=== PATIENT | female | born 1970 | race Caucasian/White ===

== ENCOUNTER 2018-01-09 20:05 | Inpatient (IN) | payer OTHER, MEDICARE ==
[~2018-01-09] VITALS: Ht 170.2 cm; Wt 94.5 kg
[~2018-01-09 20:05] MED LIST: BACTRIM DS TAB1 EACH PO; IBUPROFEN600 M1 PO; ULTRAM50 M1 PO
--- NOTE | 2018-01-09 20:39 | ED GI/GU/ABDOMINAL COMPLAINT ---
History of Present Illness General Chief Complaint: Abdominal Pain/Flank Pain Stated Complaint: BIBA FOR ABD PAIN Source: patient Exam Limitations: no limitations Vital Signs & Intake/Output Vital Signs & Intake/Output Vital Signs Date Time Temp Pulse Resp B/P B/P Pulse O2 O2 Flow FiO2 Mean Ox Delivery Rate 01/12 1147 97.7 66 18 92/60 98 Room Air 01/12 0613 98.0 69 20 124/86 96 01/11 2147 98.1 68 18 118/66 97 ED Intake and Output 01/12 0000 01/11 1200 Intake Total 1600 250 Output Total Balance 1600 250 Intake, IV 250 Intake, Oral 1600 Allergies Coded Allergies: ceftriaxone (From ROCEPHIN) (Severe, "THROAT CLOSING" 01/05/18) penicillin G (Severe, "THROAT CLOSING" 01/05/18) morphine (Intermediate, RASH 01/09/18) tetracycline (Mild, RASHES 01/05/18) aspirin (Intermediate, RASH 01/09/18) codeine (Intermediate, RASH 01/09/18) hydrocodone (From VICODIN) (Intermediate, RASH 01/09/18) Uncoded Allergies: ALL ANTIBIOTIC ENDING WITH "MYCIN" (Mild, RASHES 01/05/18) Reconcile Medications Emtricitabine/Tenofov Alafenam (Descovy 200-25 MG Tablet) 200 MG-25 MG TABLET 1 TAB PO DAILY HIV Ibuprofen 600 MG TABLET 1 TAB PO Q6P PRN pain with food Loperamide HCl (Loperamide) 2 MG TABLET 1 TAB PO Q6P DIARRHEA (Reported) Omeprazole 40 MG CAPSULE.DR 1 CAP PO BID GERD Raltegravir Potassium (Isentress) 400 MG TABLET 3 TAB PO DAILY HIV Sucralfate (Carafate) 1 GRAM TABLET 1 TAB PO 4 TIMES/DAY GI upset Sulfamethoxazole/Trimethoprim (Bactrim Ds Tablet) 800 MG-160 MG TABLET 1 TAB PO BID cellulitis Tramadol HCl (Ultram) 50 MG TABLET 1 TAB PO Q6P PRN severe pain Venlafaxine HCl (Venlafaxine HCl ER) 150 MG TAB.ER.24 1 TAB PO QPM DEPRESSION (Reported) Venlafaxine HCl 75 MG TABLET 1 TAB PO QPM DEPRESSION (Reported) Triage Note: BIBA FROME HOME WITH CHIEF COMPLAINT OF UMBILICAL PAIN X2 HOURS WITH NAUSEA AND DRY HEAVING. PATIENT STATES SHE BEGAN BACTRIM FOR BLE CELLULITIS 2 DAYS AGO AND SHE ALSO STARTED ANTI-VIRALS. PATIENT STATES SHE FEELS WEAK BUT DENIES FEVER OR CHILLS. BLE RED/SWOLLEN/WARM, +3 EDEMA NOTED. PATIENT DENIES CP OR DIFFICULTY BREATHING. Triage Nurses Notes Reviewed? yes ? N Is pt currently ? No HPI: Patient presents for evaluation of an abrupt onset of periumbilical abdominal pain that began about 3 hours ago. Patient states that is a sharp stabbing severe pain that has been constant since onset. Nothing seems to make it better or worse. At onset patient felt nauseous and did experience "dry heaving". She also felt clammy but denies associated fever or cold symptoms diarrhea dysuria rashes recent travel or suspicious meals. The pain began while she was sitting in the park. She denies any prior episodes of this nature. She is currently being treated for a right lower extremity cellulitis on Bactrim. This was diagnosed 3 days ago. 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 Past History Travel History Traveled to [place] past 21 day No Medical History Any Pertinent Medical History? 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 No Review of Systems Review of Systems Constitutional: Reports: no symptoms. EENTM: Reports: no symptoms. Respiratory: Reports: no symptoms. Cardiovascular: Reports: no symptoms. GI: Reports: see HPI. Genitourinary: Reports: no symptoms. Musculoskeletal: Reports: no symptoms. Skin: Reports: see HPI. Neurological/Psychological: Reports: no symptoms. Hematologic/Endocrine: Reports: no symptoms. Immunologic/Allergic: Reports: no symptoms. All Other Systems: Reviewed and Negative Physical Exam Physical Exam Gastrointestinal: SEE BELOW Comments: Gen.: Well-nourished, well-developed, no acute respiratory distress. Head: Normocephalic, atraumatic. Eyes: Normal inspection bilaterally Ears: Normal inspection bilaterally Nose: Normal inspection Throat/mouth : Moist mucosa Neck: Supple, full range of motion, no goiter Heart: Regular rate and rhythm, no murmurs rubs or gallops Lungs: Clear to auscultation bilaterally with normal air entry Chest: Nontender Back: Normal range of motion Abdomen: Soft, periumbilical tenderness without rebound or guarding, nondistended, normal bowel sounds Extremities: Normal range of motion grossly, equal radial pulses, no cyanosis, mild bilateral lower extremity edema with patchy erythema and warmth bilaterally. The anterior right leg has a chronic leg wound without apparent drainage. Neurologic: Cranial nerves grossly intact, speech is clear Skin: warm and dry Psychiatric: Calm, cooperative, no apparent delusions or hallucinations Core Measures ACS in differential dx? No Sepsis Present: No Sepsis Focused Exam Completed? No Progress Differential Diagnosis: CELLULITIS, STASIS DERMATITIS, NECROTIZING FASCIITIS, TOXIC SHOCK SYNDROME, Vazquez-Elyssa SYNDROME Plan of Care: Orders Procedure Date/time Status CBC WITHOUT DIFFERENTIAL 01/13 600 Active Clear Liquid Diet 01/12 L Active Nothing by Mouth 01/12 B Complete PATHOLOGY SPECIMEN 01/12 1331 Active T-HELPER/SUPPRESSOR Ref$ 01/12 0600 Active CBC WITHOUT DIFFERENTIAL 01/12 600 Complete BASIC ELECTROLYTES PLUS BUN&CR 01/12 06 Complete CULTURE,URINE 01/11 1428 Active Lab Add-on Test 01/11 UNK Active Current Medications Sig/Jennifer Start time Last Medication Dose Stop Time Status Admin Omeprazole 40 MG 1/2H B/BREAKF/DINNER 01/12 1630 AC (Prilosec) Sucralfate 1,000 MG 4 TIMES/DAY 01/11 1700 AC 01/12 (Carafate) 0803 Omeprazole 40 MG 1/2H B/BREAKF/DINNER 01/11 1630 CAN (Prilosec) Raltegravir 1,200 MG DAILY 01/11 1445 AC 01/12 0803 Ondansetron HCl 4 MG Q6P PRN 01/11 1115 AC 01/12 (Zofran) 0715 Venlafaxine HCl 225 MG QPM 01/10 2100 AC 01/11 (Effexor Xr) 2025 Acetaminophen 650 MG Q6P PRN 01/10 1645 AC 01/11 (Tylenol) 1631 Enoxaparin Sodium 40 MG DAILY 01/10 0900 AC 07/05 (Lovenox) 1036 Laboratory Tests 01/12/18 0642: Total Abs Lymphocytes Pending 01/12/18 0642: Anion Gap 7, Estimated GFR > 60, BUN/Creatinine Ratio 6.7 L, CBC w Diff NO MAN DIFF REQ, RBC 3.65 L, MCV 93.5, MCH 31.0, MCHC 33.2, RDW 14.9 H, MPV 8.8, Gran % 58.7, Lymphocytes % 27.2, Monocytes % 6.9, Eosinophils % 6.7 H, Basophils % 0.5, Absolute Granulocytes 2.5, Absolute Lymphocytes 1.2, Absolute Monocytes 0.3 , Absolute Eosinophils 0.3, Absolute Basophils 0, Lymphocyte Subset Cmmnt Pending, Absolute CD3 Count Pending, % CD3 Mature T-Lymphs Pending, % CD4 [place] Pending, Absolute CD4 Count Pending, T-Help/Suppress Ratio Pending, % CD8 Suppressor Pending, Absolute CD8 Count Pending, HIV 1&2 RNA (PCR) Pending Microbiology 01/12 1920 URINE ROUT: Urine Culture - RES Diagnostic Imaging: Discussed w/RAD: CT Scan. Radiology Impression: PATIENT: JADIEL JOYA PRESENT AGE: 47 PATIENT ACCOUNT NO: [id number] : 68 LOCATION: [facility] ORDERING PHYSICIAN: Eric Robles MD SERVICE DATE: 01/09/18-2038 EXAM TYPE : CAT - CT ABD & PELVIS W IV CONTRAST EXAMINATION: CT ABDOMEN AND PELVIS WITH CONTRAST CLINICAL INFORMATION: Periumbilical abdominal pain, tenderness COMPARISON: None TECHNIQUE: Multidetector volumetric imaging was performed of the abdomen and pelvis following IV administration of 95 mL of Optiray 320 intravenous contrast. Sagittal and coronal reformatted images were obtained on the technologist's workstation. DLP: 567 mGy-cm FINDINGS: LUNG BASES: The visualized lung bases are unremarkable. LIVER, GALLBLADDER, AND BILIARY TREE: The liver is normal in size, shape, and attenuation. No focal hepatic lesion or biliary ductal dilatation is present. The gallbladder is unremarkable with no evidence of radiopaque gallstones, gallbladder wall thickening, or obvious pericholecystic inflammatory changes. PANCREAS: Unremarkable. SPLEEN: Unremarkable. ADRENAL GLANDS: There is a 1.8 cm lipid rich adenoma at the inferolateral aspect of the left lateral limb. The right adrenal gland appears normal. KIDNEYS AND URETERS: The kidneys are normal in size, shape, and attenuation. No hydronephrosis, hydroureter, or calculi seen. No perinephric stranding. BLADDER: Unremarkable. GASTROINTESTINAL TRACT: The small and large bowel are unremarkable. The appendix is unremarkable. ABDOMINAL WALL: No significant hernia is appreciated. LYMPH NODES: Normal. VASCULAR: Unremarkable. PELVIC VISCERA: Unremarkable. OSSEOUS STRUCTURES: Severe facet arthrosis at L4- L5 with slight anterolisthesis. Right sacroiliitis with sclerosis, appearing chronic. IMPRESSION: No focal inflammatory process or obstruction. Normal appendix. There is a 1.8 cm left adrenal adenoma. DICTATED BY: Santiago Bolaños MD DATE/TIME DICTATED:01/09/182218 OCCUPATIONAL HEALTH PHYSIOTHERAPIST:ELLEN DATE/TIME TRANSCRIBED:01/09/182218 CONFIDENTIAL, DO NOT COPY WITHOUT APPROPRIATE AUTHORIZATION. <Electronically signed in Other Vendor System> SIGNED BY: Santiago Bolaños MD 01/09/182230 Initial ED EKG: none Comments: Patient states that her "MYCIN" allergy was to erythromycin. Departure Departure Disposition: STILL A PATIENT Condition: Stable Clinical Impression Primary Impression: Cellulitis of right lower extremity Secondary Impressions: Nonspecific abdominal pain Referrals: Patient Has No Primary Care Dr (PCP/Family) Departure Forms: Customer Survey General Discharge Information Prescriptions: Current Visit Scripts Emtricitabine/Tenofov Alafenam (Descovy 200-25 MG Tablet) 1 TAB PO DAILY #30 TAB Raltegravir Potassium (Isentress) 3 TAB PO DAILY #90 TAB Omeprazole 1 CAP PO BID #60 CAP Sucralfate (Carafate) 1 TAB PO 4 TIMES/DAY #120 TAB Admission Note Spoke With: Pierre Narvaez MD Documentation of Exam: Documentation of any treatments & extenuating circumstances including Concerns Regarding Discharge (functional status, medication knowledge or non-compliance, living conditions, etc.) that warrant an admission rather than observation: Patient presents with bilateral lower extremity cellulitis that has not responded to outpatient management with Bactrim. This patient now requires hospitalization given her failure of outpatient treatment for more aggressive management with IV antibiotics. Vital signs should be monitored for fever. Patient's lower extremities should be evaluated serially to assess for improvement. If patient does not respond to initial management over the next 48 hours then infectious disease consultation should be considered. This patient has had multiple episodes of cellulitis in the past and osteomyelitis should also be considered. These multiple episodes also raised the possibility of a multidrug resistant infection that could complicate and prolong her recovery and treatment. I feel she will require a multiple day hospitalization.
[2018-01-09 21:18] LABS: ABSOLUTE BASOPHIL COUNT 0 /CUMM (0.0-0.2); ABSOLUTE EOSINOPHIL COUNT 0.3 /CUMM (0.0-0.7); ABSOLUTE GRANULOCYTE CT 5.3 /CUMM (1.4-6.5); ABSOLUTE LYMPH COUNT 1.5 /CUMM (1.2-3.4); ABSOLUTE MONOCYTE COUNT 0.6 /CUMM (0.10-0.60); BASOPHIL % 0.4 % (0.0-2.0); EOSINOPHIL % 3.8 % (0-5); MEAN CORPUSCULAR HGB 31.3 PG (27.0-31.0); MEAN CORPUSCULAR HGB CONC 33.8 G/DL (33.0-37.0); MEAN CORPUSCULAR VOLUME 92.5 FL (81.0-99.0); MEAN PLATELET VOLUME 8.7 FL (7.4-10.4); PLATELET COUNT 241 /CUMM (130-400); RBC DISTRIBUTION WIDTH 15.3 % (11.5-14.5); RED BLOOD CELL CT 3.89 /CUMM (4.20-5.40); WHITE BLOOD CELL COUNT 7.6 /CUMM (4.8-10.8)
--- NOTE | 2018-01-09 22:31 | CT SCAN REPORT ---
EXAMINATION: CT ABDOMEN AND PELVIS WITH CONTRAST CLINICAL INFORMATION: Periumbilical abdominal pain, tenderness COMPARISON: None TECHNIQUE: Multidetector volumetric imaging was performed of the abdomen and pelvis following IV administration of 95 mL of Optiray 320 intravenous contrast. Sagittal and coronal reformatted images were obtained on the technologist's workstation. DLP: 567 mGy-cm FINDINGS: LUNG BASES: The visualized lung bases are unremarkable. LIVER, GALLBLADDER, AND BILIARY TREE: The liver is normal in size, shape, and attenuation. No focal hepatic lesion or biliary ductal dilatation is present. The gallbladder is unremarkable with no evidence of radiopaque gallstones, gallbladder wall thickening, or obvious pericholecystic inflammatory changes. PANCREAS: Unremarkable. SPLEEN: Unremarkable. ADRENAL GLANDS: There is a 1.8 cm lipid rich adenoma at the inferolateral aspect of the left lateral limb. The right adrenal gland appears normal. KIDNEYS AND URETERS: The kidneys are normal in size, shape, and attenuation. No hydronephrosis, hydroureter, or calculi seen. No perinephric stranding. BLADDER: Unremarkable. GASTROINTESTINAL TRACT: The small and large bowel are unremarkable. The appendix is unremarkable. ABDOMINAL WALL: No significant hernia is appreciated. LYMPH NODES: Normal. VASCULAR: Unremarkable. PELVIC VISCERA: Unremarkable. OSSEOUS STRUCTURES: Severe facet arthrosis at L4-L5 with slight anterolisthesis. Right sacroiliitis with sclerosis, appearing chronic. IMPRESSION: No focal inflammatory process or obstruction. Normal appendix. There is a 1.8 cm left adrenal adenoma.
--- NOTE | 2018-01-10 02:05 | History & Physical ---
Raphael Mccormack 01/10/18 0203: General Information and HPI MD Statement: I have seen and personally examined JADIEL JOYA and documented this H&P. The patient is a 47 year old F who presented with a patient stated chief complaint of [bilateral lower extremity cellulitis]. Source of Information: patient Exam Limitations: no limitations History of Present Illness: Patient is a 47 yo lady with a PMH significant for AIDS (dx 2006), Mitochondrial Disorder, and Depression, who presents with bilateral lower extremity cellulitis and abdominal pain. She states that the pain is orginating around her umbilical area and describes it as 8/10 in intensity and fairly acute onset starting earlier today (January 09). The pain does not radiate anywhere and although nothing improves her symptoms, movement seems to worsen her symptoms. Her pain is associated with fairly significant nausea and dry heaving. Although she takes loperimide for chronic diarrhea associated with her HAART regimen, she denies any change in her bowel habits since onset of these symtpoms. Futhermore, she complains of bilateral lower extremity erythema, and swelling with purplish sores on the right leg. She states that the sores are old, but they started draining about 5 days ago at the same time that the erythema started. The drainage was originally clear and then became whitish like pus. She was put on Bactrim for the last 5 days, but agrees that it has not improved her situation. She has been hospitalized 9 times in the past 3 months for this bilateral swelling. She denies fever, chills, dizziness, vomitting, burning on urination, or any parasthesias. 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 EENTM: Reports: see HPI. Cardiovascular: Reports: see HPI. Respiratory: Reports: see HPI. GI: Reports: see HPI. Genitourinary: Reports: see HPI. Musculoskeletal: Reports: see HPI. Skin: Reports: see HPI. Neurological/Psychological: Reports: see HPI. Hematologic/Endocrine: Reports: see HPI. Immunologic/Allergic: Reports: see HPI. All Other Systems: Reviewed and Negative Exam & Diagnostic Data Last 24 Hrs of Vital Signs/I&O Vital Signs Date Time Temp Pulse Resp B/P B/P Pulse O2 O2 Flow FiO2 Mean Ox Delivery Rate 01/11 1404 98.2 78 16 102/70 96 Room Air 01/11 0706 98.0 85 18 124/76 98 07/04 2245 98.6 81 18 110/80 97 Room Air Intake & Output 01/11 1600 07/ 0800 07/ 0000 Intake Total 800 250 480 Output Total Balance 800 250 480 Intake, IV 250 Intake, Oral 800 480 Physical Exam General Appearance Alert, Oriented X3, Cooperative, Mild Distress Skin Temp/Moisture Exam: Warm/Dry Sepsis Skin Exam (color): Normal for Ethnicity HEENT Atraumatic, PERRLA, EOMI Neck Supple, No JVD Cardiovascular Normal S1, Normal S2 Lungs Clear to Auscultation Abdomen Normal Bowel Sounds Neurological Normal Speech, Strength at 5/5 X4 Ext Extremities erythema and edema b/l lower ext Vascular Normal Pulses Assessment/Plan Assessment: Vitals on admission were temperature 96.0, heart rate 96, respiratory rate 20, BP 165/35, and oxygen saturation 96% on room air. She had a WBC count of 7.6, H&H 12.2/36.0, platelet count 241, sodium 135, K 5.0 , BUN/creatinine 12/0.7, lactic acid 1.[address] abdomen and pelvis was negative for any acute abdominal pathology or obstruction. Problem list #Abdominal pain, unclear etiology - Start on clear liquid diet, advance as tolerated #Bilateral lower extremity cellulitis, failed outpatient treatment - already given 1 dose vancomycin and ciprofloxacin in the ER given history of recurrent cellulitis (pt hx of anaphylaxis to penicillins) - F/U blood cx #History of AIDS - Burke antiviral reigmen (HAART) #History of depression - Continue venlafaxine ADMIT to general medicine floor DVT prophylaxis; subcutaneous Lovenox As Ranked By This Provider Problem List: 1. Nonspecific abdominal pain 2. Cellulitis of right leg Core Measures/Misc (03/26) Acute Coronary Syndrome ACS Diagnosis: No Congestive Heart Failure Congestive Heart Failure Diagnosis No Cerebrovascular Accident CVA/TIA Diagnosis: No VTE (View Protocol) VTE Risk Factors Age>40 No Mechanical VTE Prophylaxis d/t N/A MechProphylax Ordered No VTE Pharm Prophylaxis d/t NA PharmProphylax ordered Sepsis (View protocol) Sepsis Present: No If YES complete Sepsis Event Note If YES complete Sepsis Event Note Pierre Narvaez MD 01/10/18 0235: Core Measures/Misc (03/26) Sepsis (View protocol) If YES complete Sepsis Event Note If YES complete Sepsis Event Note Attending MD Review Statement Attending Statement Attending MD Statement: examined this patient, discuss w/resident/PA/WORD PROCESSOR TECHNICIAN, agreed w/resident/PA/WORD PROCESSOR TECHNICIAN, reviewed EMR data (avail) Attending Assessment/Plan: 47F PMH HIV, mitochondrial disorder that can lead to lactic acidosis (per her), chronic non-healing ulcer on right leg presents with RLE cellulitis present for a week, started on Bactrim on 01/05 with worsening of pain and erythema of RLE. Afebrile, normal vitals, normal WBC. Complains of mild diffuse abdominal pain, exam benign, CT abdomen normal, labs unremarkable. Has allergy to penicillin, cephalosporins, macrolides. Started on Vanco and Cipro, will continue, cultures , leg elevation, confirm records. Pedro RIBERA,Tati 01/10/18 1545: General Information and HPI Allergies/Medications Allergies: Coded Allergies: ceftriaxone (From ROCEPHIN) (Severe, "THROAT CLOSING" 01/05/18) penicillin G (Severe, "THROAT CLOSING" 01/05/18) morphine (Intermediate, RASH 01/09/18) tetracycline (Mild, RASHES 01/05/18) aspirin (Intermediate, RASH 01/09/18) codeine (Intermediate, RASH 01/09/18) hydrocodone (From VICODIN) (Intermediate, RASH 01/09/18) Uncoded Allergies: ALL ANTIBIOTIC ENDING WITH "MYCIN" (Mild, RASHES 01/05/18) Home Med list Ibuprofen 600 MG TABLET 1 TAB PO Q6P PRN pain with food Loperamide HCl (Loperamide) 2 MG TABLET 1 TAB PO Q6P DIARRHEA (Reported) Sulfamethoxazole/Trimethoprim (Bactrim Ds Tablet) 800 MG-160 MG TABLET 1 TAB PO BID cellulitis Tramadol HCl (Ultram) 50 MG TABLET 1 TAB PO Q6P PRN severe pain Venlafaxine HCl (Venlafaxine HCl ER) 150 MG TAB.ER.24 1 TAB PO QPM DEPRESSION (Reported) Venlafaxine HCl 75 MG TABLET 1 TAB PO QPM DEPRESSION (Reported) Core Measures/Misc (03/26) Sepsis (View protocol) If YES complete Sepsis Event Note If YES complete Sepsis Event Note Resident Review Statement Resident Statement: examined this patient, discussed with internal audit manager, agreed with internal audit manager Other Findings: Ms. Joya is a 47-year-old lady with past medical history significant for ?? Mitochondrial disorder, depression and AIDS who presents with bilateral lower extremity edema and abdominal pain starting around 3 PM this afternoon. According to the patient, she was in her usual state of health when around 3 PM she started having pain around her bellybutton. Pain was 8/10 in intensity, without any radiation or aggravating or relieving factors. She also reports nausea with dry heaving and denies any vomiting. Also denies fever or chills. She usually takes loperamide for diarrhea caused by her antiviral medications but currently denies any diarrhea. She looks complains of bilateral lower extremity erythema, right greater than left, that started around 5 days ago. She also noticed pus/discharge from one of several lesions on her right denton which has improved now. She was started on Bactrim but denies any improvement in the erythema and has noticed spreading of the erythema on her right side. She has had multiple hospitalizations in the past 3-4 months for similar complaint. Vitals on admission were temperature 96.0, heart rate 96, respiratory rate 20, BP 165/35, and oxygen saturation 96% on room air. She had a WBC count of 7.6, H&H 12.2/36.0, platelet count 241, sodium 135, K 5.0 , BUN/creatinine 12/0.7, lactic acid 1.[address] abdomen and pelvis was negative for any acute abdominal pathology or obstruction. Problem list, 1. Abdominal pain, unclear etiology 2. Bilateral lower extremity cellulitis, failed outpatient treatment 3. History of AIDS 4. History of depression - Admit the patient to general medicine floor - Patient was given 1 dose of vancomycin(to cover MRSA) and ciprofloxacin(gram- negative coverage) in the ER given history of recurrent cellulitis which can result in drug persistent and also history of AIDS. Also has a history of anaphylaxis to penicillins and Rocephin. - Follow-up blood cultures - Continue antiviral medications. - Continue venlafaxine. - Start on clear liquid diet given nausea and abdominal pain, advance as tolerated. DVT prophylaxis; subcutaneous Lovenox Patient is full code
[2018-01-10 02:25] VITALS: BP 130/82
--- NOTE | 2018-01-10 02:35 | Admission Certification ---
Admission Certification Certification Statement - As attending physician, I certify that at the time of - admission, based on clinical presentation, severity of - symptoms, need for further diagnostic testing and - therapeutic interventions, and risk of adverse outcomes - without in-hospital treatment, in my clinical assessment, - this patient requires an acute hospital stay for a minimum - of two nights or longer. I have also considered psychsocial - factors such as support system, advanced age, financial - issues, cognitive issues, and failed out-patient treatments, - past re-admission history, safety of patient, and lack of - compliance as applicable. Specific rationale supporting this admission is: Cellulitis faiing outpatient treatment
[2018-01-10] MEDS ORDERED: VENLAFAXINE HC150 M1 PO ×2 (03:00→03:01)
[2018-01-10] MEDS ORDERED: VENLAFAXINE HCL75 MG PO (03:02)
[2018-01-10] MEDS ORDERED: LOPERAMIDE2 M1 PO (03:02)
[2018-01-10 06:34] VITALS: BP 118/70
[2018-01-10 07:42] LABS: ABSOLUTE BASOPHIL COUNT 0 /CUMM (0.0-0.2); ABSOLUTE EOSINOPHIL COUNT 0.2 /CUMM (0.0-0.7); ABSOLUTE GRANULOCYTE CT 3.8 /CUMM (1.4-6.5); ABSOLUTE LYMPH COUNT 1.4 /CUMM (1.2-3.4); ABSOLUTE MONOCYTE COUNT 0.4 /CUMM (0.10-0.60); BASOPHIL % 0.4 % (0.0-2.0); EOSINOPHIL % 3.2 % (0-5); GRANULOCYTE % 64.9 % (42.2-75.2); MEAN CORPUSCULAR HGB 31.4 PG (27.0-31.0); MEAN CORPUSCULAR HGB CONC 33.5 G/DL (33.0-37.0); MEAN CORPUSCULAR VOLUME 93.8 FL (81.0-99.0); MEAN PLATELET VOLUME 8.7 FL (7.4-10.4); PLATELET COUNT 185 /CUMM (130-400); RED BLOOD CELL CT 3.52 /CUMM (4.20-5.40); WHITE BLOOD CELL COUNT 5.8 /CUMM (4.8-10.8)
--- NOTE | 2018-01-10 08:56 | PN- Housestaff ---
See Addendum Subjective Follow-up For: Abdominal pain, unclear etiology. Complaints: pain scale (0-10) Subjective: Patient examined at bedside. No acute events overnight. Patient complaining of stomach pain 6 out of 10, behind her bellybutton, states it is constant, non- radiating,along with nausea and dry heaves. Patient states she had a nonbloody bowel movement yesterday, was normal for her. Patient denies fever, night sweats, chills, blood in stool or melena, coffee grounds, increased urinary frequency, urgency, pain upon urination, Review of Systems Constitutional: Reports: no symptoms. Objective Last 24 Hrs of Vital Signs/I&O Vital Signs Date Time Temp Pulse Resp B/P B/P Pulse O2 O2 Flow FiO2 Mean Ox Delivery Rate 01/10 1340 97.6 97 20 102/54 98 Room Air 01/10 0634 98.2 72 18 118/70 97 Room Air 01/10 0230 Room Air 01/10 0225 98.4 78 18 130/82 99 Room Air 01/10 0142 98.2 84 18 122/69 97 Room Air 01/09 2318 98.6 82 16 122/58 96 Room Air 01/09 2007 98.0 96 20 135/65 96 Room Air Intake & Output 01/10 1600 04 0800 01/10 0000 Intake Total 490 Output Total Balance 490 Intake, IV 10 Intake, Oral 480 Number 0 Bowel Movements Patient 208 lb 180 lb Weight Weight Bed scale Reported by Patient Measurement Method Physical Exam General Appearance: Alert, Oriented X3, Cooperative Skin Temp/Moisture Exam: Warm/Dry HEENT: Atraumatic, PERRLA Neck: Supple, No LAD Cardiovascular: Regular Rate, Normal S1, Normal S2 Lungs: Clear to Auscultation, Normal Air Movement Abdomen: Normal Bowel Sounds, Soft, Tender to deep palpation francisco-umbilically, No Guarding or Rigidity Neurological: Normal Speech, Sensation Intact Extremities: No Edema, Normal Pulses, Two lesions on right lower extremity, 1st one measure 2.5 inches, negative for erythema, tenderness and discharge. 2nd lesions is adjacent, about 1 in. No erythema, tenderness or discharge present. ( Two lesions on right lower ext) Current Medications: Current Medications Sig/Jennifer Start time Last Medication Dose Route Stop Time Status Admin Acetaminophen 650 MG Q6P PRN 01/10 0300 DC PO Ciprofloxacin 500 MG BID 01/10 0900 AC 01/10 PO 01/14 0859 0833 Ciprofloxacin 0 .STK-MED ONE 01/09 2307 DC PO Ciprofloxacin 500 MG ONCE ONE 01/09 224 DC 01/09 PO 01/09 2246 2319 Enoxaparin Sodium 40 MG DAILY 01/10 0900 AC 01/10 SC 0834 Hyoscyamine 0 .STK-MED ONE 01/09 2106 DC .ROUTE Hyoscyamine 0.25 MG ONCE ONE 01/09 2045 DC 01/09 SL 01/09 2046 211 Non-Formulary 0 SEE ADMIN CRITERIA 01/10 315 UNV Medication ANY Non-Formulary 0 SEE ADMIN CRITERIA 01/10 315 UNV Medication ANY Ondansetron HCl 4 MG ONCE ONE 01/10 1400 DC 01/10 PO 01/10 1401 1426 Ondansetron HCl 0 .STK-MED ONE 01/09 2105 DC .ROUTE Ondansetron HCl 4 MG ONCE ONE 01/09 2045 DC 01/09 IV 01/09 2046 211 Sodium Chloride 1,000 ML BOLUS ONE 01/09 2045 DC 01/09 IV 01/09 2144 2112 Vancomycin HCl 1,000 MG 2330 01/10 2330 AC Sodium Chloride 250 ML IV Vancomycin HCl 0 .STK-MED ONE 01/09 2308 DC .ROUTE Vancomycin HCl 1,000 MG ONCE ONE 01/09 224 DC 01/09 Sodium Chloride 250 ML IV 01/09 2344 2319 Venlafaxine HCl 75 MG QPM 01/10 2100 CAN PO Venlafaxine HCl 225 MG QPM 01/10 2100 AC PO Last 24 Hrs of Lab/Daniel Results Last 24 Hrs of Labs/Mics: Laboratory Tests 01/10/18 0700: Urine Color STRAW, Urine Clarity CLEAR, Urine pH 6.0, Ur Specific [place] 1.010, Urine Protein NEG, Urine Ketones NEG, Urine Nitrite POS H, Urine Bilirubin NEG, Urine Urobilinogen 0.2, Ur Leukocyte Esterase TRACE H, Ur Microscopic SEDIMENT EXAMINED, Urine WBC 5-10 H, Ur Epithelial Cells FEW, Urine Bacteria MANY H, Urine Mucus FEW, Urine Hemoglobin NEG, Urine Glucose NEG 01/10/18 0647: Anion Gap 6, Estimated GFR > 60, BUN/Creatinine Ratio 13.3, CBC w Diff NO MAN DIFF REQ, RBC 3.52 L, MCV 93.8, MCH 31.4 H, MCHC 33.5, RDW 15.0 H, MPV 8.7, Gran % 64.9, Lymphocytes % 23.7, Monocytes % 7.8, Eosinophils % 3.2, Basophils % 0.4, Absolute Granulocytes 3.8, Absolute Lymphocytes 1.4, Absolute Monocytes 0.4 , Absolute Eosinophils 0.2, Absolute Basophils 0 01/09/182338: Lactic Acid Cancelled 01/09/182057: Anion Gap 11, Estimated GFR > 60, BUN/Creatinine Ratio 17.1, Glucose 81, Lactic Acid 1.4, Calcium 8.6, Total Bilirubin 0.4, AST 28, ALT 23, Alkaline Phosphatase 65, Total Protein 6.0 L, Albumin 3.2 L, Globulin 2.8, Albumin/Globulin Ratio 1.1, Lipase 49, Total Beta HCG NEGATIVE, CBC w Diff NO MAN DIFF REQ, RBC 3.89 L , MCV 92.5, MCH 31.3 H, MCHC 33.8, RDW 15.3 H, MPV 8.7, Gran % 69.0, Lymphocytes % 19.0 L, Monocytes % 7.8, Eosinophils % 3.8, Basophils % 0.4, Absolute Granulocytes 5.3, Absolute Lymphocytes 1.5, Absolute Monocytes 0.6, Absolute Eosinophils 0.3, Absolute Basophils 0 01/09/182038: Urine Color Cancelled, Urine Clarity Cancelled, Urine pH Cancelled, Ur Specific [place] Cancelled, Urine Protein Cancelled, Urine Ketones Cancelled, Urine Nitrite Cancelled, Urine Bilirubin Cancelled, Urine Urobilinogen Cancelled, Ur Leukocyte Esterase Cancelled, Ur Microscopic Cancelled, Urine Hemoglobin Cancelled, Urine Glucose Cancelled Assessment/Plan Assessment: Patient is a 47-year-old female with past medical history significant for AIDS mitochondrial disorder unknown, and depression. She is presenting with abdominal pain and right lower extremity cellulitis. #Abdominal Pain, unclear etiology Physical exam is benign. Abdominal CT on 01/09/18 negative for focal inflammatory process or obstruction. Patient has been noncompliant with medications, unsure when she took last HIV medication. Stool is negative for upper or lower GI bleed. Plan: -Advance diet to Full liquid, and monitor. #Urinary tract infection Urine positive for nitrites and leukocyte esterase and many bacteria. Plan: -Ciprofloxacin 500 mg twice daily #AIDS Patient diagnosed with AIDS in 2006. Recalls CD 4 count of 350 in March 2017. Has been noncompliant with medications, states has not been receiving medications due to traveling throughout various states before coming to [place]. Plan: -Restart Descony and raltegravir -Outpatient workup for CD4 count and viral load. #Right lower extremity cellulitis Infection has been ongoing since August while patient was in [place]. Has traveled to multiple [facility] and has been given multiple antibiotics for same condition, with no results. Most recently has taken Bactrim, has been given Zyvox prior and one other medical and cannot recall. Plan: -Currently on Vancomycin and Ciprofloxacin -Will consult ID #Mitochondrial disorder Describes symptoms as hypoglycemia, ketones in urine and increase in lactic acid. Plan: We will monitor signs, complete workup if required Problem List: 1. Nonspecific abdominal pain Pain Ratin Pain Location: Periumbilical. Pain Goal: Remain pain free Pain Plan: Adjust diet and monitor Tomorrow's Labs & Rationales: CBC
[2018-01-10 13:40] VITALS: BP 102/54
[2018-01-10 22:45] VITALS: BP 110/80
[2018-01-11 07:06] VITALS: BP 124/76
--- NOTE | 2018-01-11 07:17 | PN- Housestaff ---
See Addendum Subjective Follow-up For: Abdominal Pain Complaints: pain scale (0-10) Subjective: Patient seen and examined at bedside. Patient is complaining of abdominal pain, states it kept her up all night until she received received tramadol than she was finally able to sleep. States pain is 6 out of 10, and improved to 3 out of 10 after receiving medication. Patient states she was able to eat her meal but the pain was worsened after eating dinner last night. Pain associated with dry heaving. Patient states her last bowel movement was yesterday which was regular for her, denies any blood. Review of Systems Constitutional: Denies: chills, fever. Cardiovascular: Denies: chest pain, palpitations. Respiratory: Denies: cough, short of breath. Gastrointestinal: Reports: abdominal pain. Denies: constipation, diarrhea, distention, melena, bloody stool, changes in stool, vomiting. Objective Last 24 Hrs of Vital Signs/I&O Vital Signs Date Time Temp Pulse Resp B/P B/P Pulse O2 O2 Flow FiO2 Mean Ox Delivery Rate 01/11 1404 98.2 78 16 102/70 96 Room Air 07/ 0706 98.0 85 18 124/76 98 07/04 2245 98.6 81 18 110/80 97 Room Air Intake & Output 07/05 1600 07/05 0800 07/05 0000 Intake Total 800 250 480 Output Total Balance 800 250 480 Intake, IV 250 Intake, Oral 800 480 Physical Exam General Appearance: Alert, Oriented X3, Cooperative Skin: 2 lesions on anterior right leg. No discharge, erythema, warmth appreciated. HEENT: Atraumatic, PERRLA, EOMI Neck: Supple, No LAD Cardiovascular: Normal S1, Normal S2, Tachycardic Lungs: Clear to Auscultation, Normal Air Movement Abdomen: Normal Bowel Sounds, Soft, Generalized tenderness to deep palpation Neurological: Normal Speech, Strength at 5/5 X4 Ext, Sensation Intact Extremities: No Cyanosis, No Edema, Normal Pulses Assessment/Plan Assessment: Assessment: Patient is a 47-year-old female with past medical history significant for AIDS mitochondrial disorder unknown, and depression. She is presenting with abdominal pain and right lower extremity cellulitis. #Abdominal Pain, unclear etiology Physical exam is benign. Abdominal CT on 01/09/18 negative for focal inflammatory process or obstruction. Patient has been noncompliant with medications, unsure when she took last HIV medication. Stool is negative for upper or lower GI bleed. Urine test is negative Plan: - will NPO after midnight for possible EGD tomorrow if abdominal pain does not imporove - Zofran for Nausea - Pantroprazole BID - Sucralfate 1g PO QID - GI is following patient, input is highly appreciated #Urinary tract infection Urine positive for nitrites and leukocyte esterase and many bacteria. Afebrile, no urinary symptoms presently. Plan: - follow off antibiotics - F/u urine culture and reasses #AIDS Patient diagnosed with AIDS in 2006. Recalls CD 4 count of 350 in March 2017. Has been noncompliant with medications, states has not been receiving medications due to traveling throughout various states before coming to [place]. Plan: -Restart Descony 200/25mg PoO Qdaily and raltegravir 1200mg PO Qdaily -Order CD4 count and viral load #Right lower extremity cellulitis Infection has been ongoing since August while patient was in [place]. Has traveled to multiple states and has been given multiple antibiotics for same condition, with no results. Most recently has taken Bactrim, has been given Zyvox prior and one other medical and cannot recall. Plan: - is improving, follow off antibiotics - Deep Venous U/S negative for DVT in R. Lower extremity #Mitochondrial disorder Describes symptoms as hypoglycemia, ketones in urine and increase in lactic acid. Plan: We will monitor signs, complete workup if required Problem List: 1. Nonspecific abdominal pain Pain Ratin Pain Location: francisco-umbilical Pain Goal: Remain pain free Pain Plan: EGD if pain continues Tomorrow's Labs & Rationales: CBC
--- NOTE | 2018-01-11 11:17 | ULTRASOUND REPORT ---
EXAMINATION: RIGHT LOWER EXTREMITY DEEP VENOUS ULTRASOUND CLINICAL INFORMATION: Chronic but worsening right lower extremity swelling and pain. COMPARISON: None. TECHNIQUE: Duplex Doppler imaging with compression maneuvers were performed of the right lower extremity deep venous system. FINDINGS: The visualized common femoral, femoral and popliteal veins demonstrate normal compressibility and color flow without evidence of venous thrombosis. Visualized portions of the calf veins demonstrate normal color fill-in suggesting patency. There is no evidence of a Mandujano's cyst. IMPRESSION: No evidence of deep venous thrombosis involving the right lower extremity.
[2018-01-11 14:04] VITALS: BP 102/70
--- NOTE | 2018-01-11 14:34 | Cons- Infect Disease ---
General Information and HPI Consulting Request Date of Consult: 01/11/18 Requested By: Rodrigo Ha MD Reason for Consult: Rule out cellulitis of the lower extremities Source of Information: patient, friend History of Present Illness: This is a 47-year-old woman with AIDS, diagnosed over 13 years prior to admission, maintained on antiretroviral therapy for nearly 10 years, with a recent 2 month lapse in her treatment due to relocation to the [facility] from [place], with her CD4 count 350 and an undetectable viral load 9 months prior to admission, with a history of mitochondrial disorder, depression and a 3 year history of bilateral lower extremity edema and erythema, treated with multiple courses of antibiotics for cellulitis, most recently 5 months prior to admission , in [place], status post a fall 1 month prior to admission injuring her right hip, seen in the emergency room 1 week prior to admission with erythema and edema of the right leg and bilateral hip pain, found to be afebrile and discharged on Bactrim, with no improvement reported, admitted on January 09 after presenting to the emergency room with the acute onset of periumbilical pain, nausea and dry heaves and persistent right lower extremity erythema and edema. On admission she was afebrile. Laboratory data revealed a white blood cell count of 7600, BUN/creatinine 12 and 0.7, with normal liver enzymes. Urinalysis 5-[address] of the abdomen and pelvis was negative. She was begun on Vancomycin and Ciprofloxacin. Bactrim was added on January 10 but has been discontinued. She has remained afebrile since admission. She continues to complain of periumbilical discomfort but has had no vomiting. She also complains of burning pain in the right lower extremity. Allergies/Medications Allergies: Coded Allergies: ceftriaxone (From ROCEPHIN) (Severe, "THROAT CLOSING" 01/05/18) penicillin G (Severe, "THROAT CLOSING" 01/05/18) morphine (Intermediate, RASH 01/09/18) tetracycline (Mild, RASHES 01/05/18) aspirin (Intermediate, RASH 01/09/18) codeine (Intermediate, RASH 01/09/18) hydrocodone (From VICODIN) (Intermediate, RASH 01/09/18) Uncoded Allergies: ALL ANTIBIOTIC ENDING WITH "MYCIN" (Mild, RASHES 01/05/18) Home Med List: Ibuprofen 600 MG TABLET 1 TAB PO Q6P PRN pain with food Loperamide HCl (Loperamide) 2 MG TABLET 1 TAB PO Q6P DIARRHEA (Reported) Sulfamethoxazole/Trimethoprim (Bactrim Ds Tablet) 800 MG-160 MG TABLET 1 TAB PO BID cellulitis Tramadol HCl (Ultram) 50 MG TABLET 1 TAB PO Q6P PRN severe pain Venlafaxine HCl (Venlafaxine HCl ER) 150 MG TAB.ER.24 1 TAB PO QPM DEPRESSION (Reported) Venlafaxine HCl 75 MG TABLET 1 TAB PO QPM DEPRESSION (Reported) Past History Travel History Traveled to [place] past 21 day No Medical History Blood Transfusion Hx: No Neurological: NONE EENT: NONE Cardiovascular: NONE Respiratory: NONE Gastrointestinal: NONE Hepatic: NONE Renal: NONE Musculoskeletal: NONE Psychiatric: depression, PTSD Endocrine: NONE Blood Disorders: NONE Cancer(s): NONE 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 Other Services at Home: None Smoking Status: Current Everyday Smoker ETOH Use: occasional use Illicit Drug Use: denies illicit drug use Review of Systems Review of Systems All Other Systems: Reviewed and Negative Exam & Diagnostic Data Last 24 Hrs of Vital Signs/I&O Vital Signs Date Time Temp Pulse Resp B/P B/P Pulse O2 O2 Flow FiO2 Mean Ox Delivery Rate 01/11 1404 98.2 78 16 102/70 96 Room Air / 0706 98.0 85 18 124/76 98 / 2245 98.6 81 18 110/80 97 Room Air Intake & Output 01/11 1600 / 0800 07 0000 Intake Total 800 250 480 Output Total Balance 800 250 480 Intake, IV 250 Intake, Oral 800 480 Physical Exam Other Physical Findings: She is awake and alert in no acute distress. She is afebrile. Skin reveals no rash. HEENT exam is negative. Neck is supple with no adenopathy. Lungs are clear. Heart regular rhythm with no murmur. Abdomen is soft, mildly tender on palpation diffusely, with no guarding or rebound, with positive bowel sounds. Back no CVA tenderness. Extremities no significant erythema of either extremity ; mild edema of the right lower extremity, with minimal tenderness on palpation; 2 open wounds on the anterior tibial aspect of her leg; ecchymosis of the right thigh. Neuro is without focality. Last 24 Hours of Lab Results: Laboratory Tests 01/10 01/10 UNK 0700 Toxicology Urine Opiates Screen (>2000 NG/ML) < 100 Methadone Screen (>300 NG/ML) 47 Barbiturate Screen (>200 NG/ML) < 60 Ur Phencyclidine Scrn (>25 NG/ML) < 6.00 Amphetamines Screen (>1000 NG/ML) < 100 U Benzodiazepines Scrn (>200 NG/ML) < 85 Urine Cocaine Screen (>300 NG/ML) < 50 Urine Cannabis Screen (>50 NG/ML) < 5.00 Urines Urine Color (YEL,AMB,STR) STRAW Urine Clarity (CLEAR) CLEAR Urine pH (5.0 - 8.0) 6.0 Ur Specific [place] (1.001 - 1.035) 1.010 Urine Protein (NEG,<30 MG/DL) NEG Urine Ketones (NEG) NEG Urine Nitrite (NEG) POS H Urine Bilirubin (NEG) NEG Urine Urobilinogen (0.1 - 1.0 EU/dl) 0.2 Ur Leukocyte Esterase (NEG) TRACE H Ur Microscopic SEDIMENT EXAMINED Urine WBC (0 - 2 /HPF) 5-10 H Ur Epithelial Cells (NONE,FEW) FEW Urine Bacteria (NEG/NONE) MANY H Urine Mucus (FEW,NONE) FEW Urine Hemoglobin (NEG) NEG Urine Glucose (N MG/DL) NEG Urine Test NEGATIVE 01/10 01/09 0647 2339 Chemistry Sodium (137 - 145 mmol/L) 140 Potassium (3.5 - 5.1 mmol/L) 4.6 Chloride (98 - 107 mmol/L) 107 Carbon Dioxide (22 - 30 mmol/L) 27 Anion Gap (5 - 16) 6 BUN (7 - 17 mg/dL) 8 Creatinine (0.5 - 1.0 mg/dL) 0.6 Estimated GFR (>60 ml/min) > 60 BUN/Creatinine Ratio (7 - 25 %) 13.3 Lactic Acid Cancelled Hematology CBC w Diff NO MAN DIFF REQ WBC (4.8 - 10.8 /CUMM) 5.8 RBC (4.20 - 5.40 /CUMM) 3.52 L Hgb (12.0 - 16.0 G/DL) 11.1 L Hct (37 - 47 %) 33.0 L MCV (81.0 - 99.0 FL) 93.8 MCH (27.0 - 31.0 PG) 31.4 H MCHC (33.0 - 37.0 G/DL) 33.5 RDW (11.5 - 14.5 %) 15.0 H Plt Count (130 - 400 /CUMM) 185 MPV (7.4 - 10.4 FL) 8.7 Gran % (42.2 - 75.2 %) 64.9 Lymphocytes % (20.5 - 51.1 %) 23.7 Monocytes % (1.7 - 9.3 %) 7.8 Eosinophils % (0 - 5 %) 3.2 Basophils % (0.0 - 2.0 %) 0.4 Absolute Granulocytes (1.4 - 6.5 /CUMM) 3.8 Absolute Lymphocytes (1.2 - 3.4 /CUMM) 1.4 Absolute Monocytes (0.10 - 0.60 /CUMM) 0.4 Absolute Eosinophils (0.0 - 0.7 /CUMM) 0.2 Absolute Basophils (0.0 - 0.2 /CUMM) 0 01/09 Chemistry Sodium (137 - 145 mmol/L) 135 L Potassium (3.5 - 5.1 mmol/L) 5.0 Chloride (98 - 107 mmol/L) 103 Carbon Dioxide (22 - 30 mmol/L) 22 Anion Gap (5 - 16) 11 BUN (7 - 17 mg/dL) 12 Creatinine (0.5 - 1.0 mg/dL) 0.7 Estimated GFR (>60 ml/min) > 60 BUN/Creatinine Ratio (7 - 25 %) 17.1 Glucose (65 - 99 mg/dL) 81 Lactic Acid (0.7 - 2.1 mmol/L) 1.4 Calcium (8.4 - 10.2 mg/dL) 8.6 Total Bilirubin (0.2 - 1.3 mg/dL) 0.4 AST (14 - 36 U/L) 28 ALT (9 - 52 U/L) 23 Alkaline Phosphatase (<127 U/L) 65 Total Protein (6.3 - 8.2 g/dL) 6.0 L Albumin (3.5 - 5.0 g/dL) 3.2 L Globulin (1.9 - 4.2 gm/dL) 2.8 Albumin/Globulin Ratio (1.1 - 2.2 %) 1.1 Lipase (23 - 300 U/L) 49 Total Beta HCG (NEGATIVE) NEGATIVE Hematology CBC w Diff NO MAN DIFF REQ WBC (4.8 - 10.8 /CUMM) 7.6 RBC (4.20 - 5.40 /CUMM) 3.89 L Hgb (12.0 - 16.0 G/DL) 12.2 Hct (37 - 47 %) 36.0 L MCV (81.0 - 99.0 FL) 92.5 MCH (27.0 - 31.0 PG) 31.3 H MCHC (33.0 - 37.0 G/DL) 33.8 RDW (11.5 - 14.5 %) 15.3 H Plt Count (130 - 400 /CUMM) 241 MPV (7.4 - 10.4 FL) 8.7 Gran % (42.2 - 75.2 %) 69.0 Lymphocytes % (20.5 - 51.1 %) 19.0 L Monocytes % (1.7 - 9.3 %) 7.8 Eosinophils % (0 - 5 %) 3.8 Basophils % (0.0 - 2.0 %) 0.4 Absolute Granulocytes (1.4 - 6.5 /CUMM) 5.3 Absolute Lymphocytes (1.2 - 3.4 /CUMM) 1.5 Absolute Monocytes (0.10 - 0.60 /CUMM) 0.6 Absolute Eosinophils (0.0 - 0.7 /CUMM) 0.3 Absolute Basophils (0.0 - 0.2 /CUMM) 0 Urines Urine Color Cancelled Urine Clarity Cancelled Urine pH Cancelled Ur Specific [place] Cancelled Urine Protein Cancelled Urine Ketones Cancelled Urine Nitrite Cancelled Urine Bilirubin Cancelled Urine Urobilinogen Cancelled Ur Leukocyte Esterase Cancelled Ur Microscopic Cancelled Urine Hemoglobin Cancelled Urine Glucose Cancelled Last 24 Hours of Daniel Results: No cultures Diagnostic Data Recent Imaging Findings: CT of the abdomen and pelvis January 09 negative Doppler of the right lower extremity January 11 negative Assessment/Plan Assessment/Plan Impression: This is a 47-year-old woman with AIDS, maintained on antiretroviral therapy for nearly 10 years, with a recent 2 month lapse in her treatment due to relocation to the [facility] from [place], with her CD4 count 350 and an undetectable viral load 9 months prior to admission, with bilateral lower extremity edema and erythema over the past 3 years, treated with multiple courses of antibiotics for cellulitis, most recently 1 week prior to admission, admitted on January 09 with the acute onset of periumbilical pain, nausea and dry heaves, found to be afebrile with a normal white blood cell count and with a negative CT of the abdomen and pelvis. She has little evidence for cellulitis, with no significant erythema, warmth or tenderness and with no fevers or leukocytosis. The etiology of her periumbilical pain is unclear, with a negative CT of the abdomen and pelvis, and it may be related to the Bactrim, which she was given 1 week prior to admission in the ER for a presumed lower extremity cellulitis. With regard to her AIDS, she reports compliance except for the 2 month lapse while she was traveling; therefore her antiretroviral therapy should be continued. She will need to be referred to an HIV clinic upon discharge, but her CD4 count and viral load could be checked while she is here. As her last CD4 count was 350 she should not require pneumocystis prophylaxis. Suggestion: 1. Would obtain more history regarding her AIDS treatment from her HIV physician in [place] 2. Would check her CD4 count and viral load 3. Discontinue Vancomycin and Ciprofloxacin and follow off antibiotics Consult Acknowledgment - Thank you for your consult request.
--- NOTE | 2018-01-11 15:16 | Cons- Gastroenterology ---
General Information and HPI Consulting Request Date of Consult: 01/11/18 (MD AGATHA/GASTROENTEROLOGY) Requested By: Rodrigo Ha MD Reason for Consult: Abdominal pain History of Present Illness: 47-year-old white female, HIV, without significant previous GI symptoms or disease (including peptic ulcer disease). She carries a diagnosis of mitochondrial disorder. She does have frequent loose bowel movements, and mild nausea, attributed to her medications. She has had recurrent lower extremity cellulitis with frequent courses of antibiotics. She was told 1 year ago that she had iron deficiency anemia, and placed on iron supplementation without further evaluation. The patient was seen in the ER 1 week ago and placed on Bactrim and Advil for lower extremity cellulitis. She developed acute periumbilical pain yesterday, associated with dry heaves there has been no heartburn, regurgitation, dysphagia , melena or blood per rectum. Her bowel movements have remained normal. She denies fever, abdominal bloating/distention, dysuria. At this time the patient' s pain is near constant, periumbilical without radiation, and worse with eating. Patient has no history of liver, gallbladder or pancreatic disease. Family history: The patient is adopted Social history: Smokes one half pack per day. Occasional alcohol use. . Allergies/Medications Allergies: Coded Allergies: ceftriaxone (From ROCEPHIN) (Severe, "THROAT CLOSING" 01/05/18) penicillin G (Severe, "THROAT CLOSING" 01/05/18) morphine (Intermediate, RASH 01/09/18) tetracycline (Mild, RASHES 01/05/18) aspirin (Intermediate, RASH 01/09/18) codeine (Intermediate, RASH 01/09/18) hydrocodone (From VICODIN) (Intermediate, RASH 01/09/18) Uncoded Allergies: ALL ANTIBIOTIC ENDING WITH "MYCIN" (Mild, RASHES 01/05/18) Home Med List: Ibuprofen 600 MG TABLET 1 TAB PO Q6P PRN pain with food Loperamide HCl (Loperamide) 2 MG TABLET 1 TAB PO Q6P DIARRHEA (Reported) Sulfamethoxazole/Trimethoprim (Bactrim Ds Tablet) 800 MG-160 MG TABLET 1 TAB PO BID cellulitis Tramadol HCl (Ultram) 50 MG TABLET 1 TAB PO Q6P PRN severe pain Venlafaxine HCl (Venlafaxine HCl ER) 150 MG TAB.ER.24 1 TAB PO QPM DEPRESSION (Reported) Venlafaxine HCl 75 MG TABLET 1 TAB PO QPM DEPRESSION (Reported) Current Medications: Current Medications Sig/Jennifer Start time Last Medication Dose Route Stop Time Status Admin Acetaminophen 650 MG Q6P PRN 01/10 1645 AC 01/10 PO 1645 Ciprofloxacin 500 MG BID 01/10 0900 AC 01/11 PO 01/14 0859 1036 Enoxaparin Sodium 40 MG DAILY 01/10 09 AC 01/11 SC 1036 Ketorolac 30 MG .STK-MED ONE 01/11 1528 DC Tromethamine IV 01/11 1529 Ketorolac 30 MG Q6-PRN PRN 01/11 1115 01/11 Tromethamine IV 1146 Ketorolac 30 MG ONCE ONE 01/12 400 DC 01/11 Tromethamine IM 01/11 401 040 Ketorolac 30 MG ONCE ONE 01/10 2015 DC 01/10 Tromethamine IM 01/10 Naproxen 500 MG ONCE ONE 01/10 1900 DC 01/10 PO 01/10 190 1913 Non-Formulary 0 SEE ADMIN CRITERIA 01/10 0315 DC Medication ANY Non-Formulary 0 SEE ADMIN CRITERIA 01/10 0315 DC Medication ANY Omeprazole 40 MG 1/2H B/BREAKF/DINNER 01/11 1630 AC PO Omeprazole 20 MG ONCE ONE 01/10 2015 DC 01/10 PO 01/10 Ondansetron HCl 4 MG .STK-MED ONE 01/11 1528 DC PO 01/11 1529 Ondansetron HCl 4 MG Q6P PRN 01/11 1115 AC 01/11 IV 1145 Ondansetron HCl 4 MG ONCE ONE 01/11 0400 DC 01/11 PO 01/11 040 0403 Ondansetron HCl 4 MG ONCE ONE 01/10 1645 DC 01/10 PO 01/10 1646 1650 Raltegravir 1,200 MG DAILY 01/11 1445 AC PO Raltegravir 400 MG BID 01/11 1122 CAN PO Trimethoprim/ 1 TAB BID 01/10 2100 AC 01/11 Sulfamethoxazole PO 01/11 2059 1036 Vancomycin HCl 1,000 MG 2330 01/10 2330 AC 01/10 Sodium Chloride 250 ML IV 2324 Venlafaxine HCl 225 MG QPM 01/10 2100 AC 01/10 PO 2052 Past History Travel History Traveled to [place] past 21 day No Medical History Blood Transfusion Hx: No Neurological: NONE EENT: NONE Cardiovascular: NONE Respiratory: NONE Gastrointestinal: NONE Hepatic: NONE Renal: NONE Musculoskeletal: NONE Psychiatric: depression, PTSD Endocrine: NONE Blood Disorders: NONE Cancer(s): NONE 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 Other Services at Home: None Smoking Status: Current Everyday Smoker ETOH Use: occasional use Illicit Drug Use: denies illicit drug use Review of Systems Review of Systems Constitutional: Reports: malaise. Denies: fever. EENTM: Denies: icterus, epistaxis. Cardiovascular: Denies: chest pain, edema, syncope. Respiratory: Denies: cough, short of breath. GI: Reports: see HPI. Genitourinary: Denies: dysuria, hematuria. Musculoskeletal: Denies: muscle stiffness, neck pain. Skin: Denies: jaundice, lesions. Neurological/Psychological: Denies: cognitive dysfunction, headache. Hematologic/Endocrine: Denies: bruising, bleeding. Immunologic/Allergic: Reports: HIV/AIDS. Exam & Diagnostic Data Vital Signs and I&O Vital Signs Date Time Temp Pulse Resp B/P B/P Pulse O2 O2 Flow FiO2 Mean Ox Delivery Rate 01/11 1404 98.2 78 16 102/70 96 Room Air 01/11 0706 98.0 85 18 124/76 98 01/10 2245 98.6 81 18 110/80 97 Room Air Intake & Output 01/11 1600 01/11 0400 01/10 1600 01/10 0400 01/09 1600 01/09 0400 Intake Total 3490 441 9612 Output Total Balance 8094 400 3953 Intake, IV 250 10 Intake, Oral 397 745 3713 Number 0 Bowel Movements Patient 208 lb Weight Weight Bed scale Measurement Method Physical Exam: Well-developed, well-nourished, in no apparent distress. Alert and oriented with normal cognition. Skin without lesion (except as below), jaundice, stigmata chronic liver disease. No adenopathy. Sclera anicteric. No oropharyngeal lesion. Neck supple without thyromegaly or mass. Heart regular rhythm. Lungs clear bilaterally. Abdomen soft, nondistended, normal bowel sounds; tenderness around the umbilicus without palpable mass or hernia, without organomegaly. Right pretibial ulceration. No other extremity abnormalities including clubbing, cyanosis or edema. Normal distal pulses. Results Pertinent Lab Results: Laboratory Tests 01/10 01/10 UNK 0700 Toxicology Urine Opiates Screen (>2000 NG/ML) < 100 Methadone Screen (>300 NG/ML) 47 Barbiturate Screen (>200 NG/ML) < 60 Ur Phencyclidine Scrn (>25 NG/ML) < 6.00 Amphetamines Screen (>1000 NG/ML) < 100 U Benzodiazepines Scrn (>200 NG/ML) < 85 Urine Cocaine Screen (>300 NG/ML) < 50 Urine Cannabis Screen (>50 NG/ML) < 5.00 Urines Urine Color (YEL,AMB,STR) STRAW Urine Clarity (CLEAR) CLEAR Urine pH (5.0 - 8.0) 6.0 Ur Specific [place] (1.001 - 1.035) 1.010 Urine Protein (NEG,<30 MG/DL) NEG Urine Ketones (NEG) NEG Urine Nitrite (NEG) POS H Urine Bilirubin (NEG) NEG Urine Urobilinogen (0.1 - 1.0 EU/dl) 0.2 Ur Leukocyte Esterase (NEG) TRACE H Ur Microscopic SEDIMENT EXAMINED Urine WBC (0 - 2 /HPF) 5-10 H Ur Epithelial Cells (NONE,FEW) FEW Urine Bacteria (NEG/NONE) MANY H Urine Mucus (FEW,NONE) FEW Urine Hemoglobin (NEG) NEG Urine Glucose (N MG/DL) NEG Urine Test NEGATIVE 01/10 01/09 0647 2339 Chemistry Sodium (137 - 145 mmol/L) 140 Potassium (3.5 - 5.1 mmol/L) 4.6 Chloride (98 - 107 mmol/L) 107 Carbon Dioxide (22 - 30 mmol/L) 27 Anion Gap (5 - 16) 6 BUN (7 - 17 mg/dL) 8 Creatinine (0.5 - 1.0 mg/dL) 0.6 Estimated GFR (>60 ml/min) > 60 BUN/Creatinine Ratio (7 - 25 %) 13.3 Lactic Acid Cancelled Hematology CBC w Diff NO MAN DIFF REQ WBC (4.8 - 10.8 /CUMM) 5.8 RBC (4.20 - 5.40 /CUMM) 3.52 L Hgb (12.0 - 16.0 G/DL) 11.1 L Hct (37 - 47 %) 33.0 L MCV (81.0 - 99.0 FL) 93.8 MCH (27.0 - 31.0 PG) 31.4 H MCHC (33.0 - 37.0 G/DL) 33.5 RDW (11.5 - 14.5 %) 15.0 H Plt Count (130 - 400 /CUMM) 185 MPV (7.4 - 10.4 FL) 8.7 Gran % (42.2 - 75.2 %) 64.9 Lymphocytes % (20.5 - 51.1 %) 23.7 Monocytes % (1.7 - 9.3 %) 7.8 Eosinophils % (0 - 5 %) 3.2 Basophils % (0.0 - 2.0 %) 0.4 Absolute Granulocytes (1.4 - 6.5 /CUMM) 3.8 Absolute Lymphocytes (1.2 - 3.4 /CUMM) 1.4 Absolute Monocytes (0.10 - 0.60 /CUMM) 0.4 Absolute Eosinophils (0.0 - 0.7 /CUMM) 0.2 Absolute Basophils (0.0 - 0.2 /CUMM) 0 01/09 Chemistry Sodium (137 - 145 mmol/L) 135 L Potassium (3.5 - 5.1 mmol/L) 5.0 Chloride (98 - 107 mmol/L) 103 Carbon Dioxide (22 - 30 mmol/L) 22 Anion Gap (5 - 16) 11 BUN (7 - 17 mg/dL) 12 Creatinine (0.5 - 1.0 mg/dL) 0.7 Estimated GFR (>60 ml/min) > 60 BUN/Creatinine Ratio (7 - 25 %) 17.1 Glucose (65 - 99 mg/dL) 81 Lactic Acid (0.7 - 2.1 mmol/L) 1.4 Calcium (8.4 - 10.2 mg/dL) 8.6 Total Bilirubin (0.2 - 1.3 mg/dL) 0.4 AST (14 - 36 U/L) 28 ALT (9 - 52 U/L) 23 Alkaline Phosphatase (<127 U/L) 65 Total Protein (6.3 - 8.2 g/dL) 6.0 L Albumin (3.5 - 5.0 g/dL) 3.2 L Globulin (1.9 - 4.2 gm/dL) 2.8 Albumin/Globulin Ratio (1.1 - 2.2 %) 1.1 Lipase (23 - 300 U/L) 49 Total Beta HCG (NEGATIVE) NEGATIVE Hematology CBC w Diff NO MAN DIFF REQ WBC (4.8 - 10.8 /CUMM) 7.6 RBC (4.20 - 5.40 /CUMM) 3.89 L Hgb (12.0 - 16.0 G/DL) 12.2 Hct (37 - 47 %) 36.0 L MCV (81.0 - 99.0 FL) 92.5 MCH (27.0 - 31.0 PG) 31.3 H MCHC (33.0 - 37.0 G/DL) 33.8 RDW (11.5 - 14.5 %) 15.3 H Plt Count (130 - 400 /CUMM) 241 MPV (7.4 - 10.4 FL) 8.7 Gran % (42.2 - 75.2 %) 69.0 Lymphocytes % (20.5 - 51.1 %) 19.0 L Monocytes % (1.7 - 9.3 %) 7.8 Eosinophils % (0 - 5 %) 3.8 Basophils % (0.0 - 2.0 %) 0.4 Absolute Granulocytes (1.4 - 6.5 /CUMM) 5.3 Absolute Lymphocytes (1.2 - 3.4 /CUMM) 1.5 Absolute Monocytes (0.10 - 0.60 /CUMM) 0.6 Absolute Eosinophils (0.0 - 0.7 /CUMM) 0.3 Absolute Basophils (0.0 - 0.2 /CUMM) 0 Urines Urine Color Cancelled Urine Clarity Cancelled Urine pH Cancelled Ur Specific [place] Cancelled Urine Protein Cancelled Urine Ketones Cancelled Urine Nitrite Cancelled Urine Bilirubin Cancelled Urine Urobilinogen Cancelled Ur Leukocyte Esterase Cancelled Ur Microscopic Cancelled Urine Hemoglobin Cancelled Urine Glucose Cancelled Imaging/Other Studies: CT scan of the abdomen and pelvis with IV contrast: IMPRESSION: No focal inflammatory process or obstruction. Normal appendix. There is a 1.8 cm left adrenal adenoma. Assessment/Plan Assessment/Recommendations: Periumbilical pain. This is acute, constant, and worse after eating. Possibly secondary to NSAIDs and/or antibiotics. Rule out exacerbation of underlying ( previously silent) ulcer disease. No biochemical or imaging findings of pancreatic disease. The location of the pain is not characteristic of biliary disease, and LFTs are normal. No evident obstruction or enteropathy, and no description of hernia on imaging. Recommendations * Clear liquid diet (advance as tolerated) * IV PPI twice a day * Sucralfate 1 g by mouth 4 times a day * Will review imaging * Hold NSAIDs * Nothing by mouth after midnight; if without improvement in pain tomorrow, will perform EGD (patient concurs). Indication for EGD also includes recent diagnosis of iron deficiency. Consult Acknowledgment - Thank you for your consult request.
[2018-01-11 21:47] VITALS: BP 118/66
[2018-01-12 06:13] VITALS: BP 124/86
[2018-01-12 08:07] LABS: ABSOLUTE BASOPHIL COUNT 0 /CUMM (0.0-0.2); ABSOLUTE EOSINOPHIL COUNT 0.3 /CUMM (0.0-0.7); ABSOLUTE GRANULOCYTE CT 2.5 /CUMM (1.4-6.5); ABSOLUTE LYMPH COUNT 1.2 /CUMM (1.2-3.4); ABSOLUTE MONOCYTE COUNT 0.3 /CUMM (0.10-0.60); BASOPHIL % 0.5 % (0.0-2.0); EOSINOPHIL % 6.7 % (0-5); GRANULOCYTE % 58.7 % (42.2-75.2); HEMATOCRIT 34.1 % (37-47); MEAN CORPUSCULAR HGB CONC 33.2 G/DL (33.0-37.0); MEAN CORPUSCULAR VOLUME 93.5 FL (81.0-99.0); MEAN PLATELET VOLUME 8.8 FL (7.4-10.4); PLATELET COUNT 167 /CUMM (130-400); RBC DISTRIBUTION WIDTH 14.9 % (11.5-14.5); RED BLOOD CELL CT 3.65 /CUMM (4.20-5.40); WHITE BLOOD CELL COUNT 4.2 /CUMM (4.8-10.8)
--- NOTE | 2018-01-12 08:53 | PN- Housestaff ---
See Addendum Subjective Follow-up For: Abdominal pain Complaints: pain scale (0-10) Subjective: Patient was seen and examined at bedside. Patient states she feel a little bit better after not having any dinner last night. Her abdominal pain today is 5-6/ 10. She is c/o nausea, had just recieved zofran a few minutes prior. Patient denies vomiting, did not have a BM yesterday, last BM was 2 days ago. Review of Systems Constitutional: Denies: chills, diaphoresis, fever. Cardiovascular: Denies: chest pain, palpitations. Respiratory: Denies: cough, short of breath. Gastrointestinal: Reports: abdominal pain, nausea. Denies: constipation, diarrhea, vomiting. Objective Last 24 Hrs of Vital Signs/I&O Vital Signs Date Time Temp Pulse Resp B/P B/P Pulse O2 O2 Flow FiO2 Mean Ox Delivery Rate 01/12 1419 98.0 76 18 110/50 97 Room Air 01/12 1147 97.7 66 18 92/60 98 Room Air 01/12 0613 98.0 69 20 124/86 96 07/05 2147 98.1 68 18 118/66 97 Intake & Output / 1600 07/06 0800 07/06 0000 Intake Total 480 130 800 Output Total Balance 480 130 800 Intake, IV 130 Intake, Oral 480 800 Patient 208 lb Weight Physical Exam General Appearance: Alert, Oriented X3, Cooperative Skin: No Rashes Skin Temp/Moisture Exam: Warm/Dry HEENT: Atraumatic, PERRLA, EOMI Neck: Supple, No LAD Cardiovascular: Regular Rate, Normal S1, Normal S2 Lungs: Clear to Auscultation, Normal Air Movement Abdomen: Normal Bowel Sounds, Soft, No Tenderness Neurological: Normal Speech Extremities: No Cyanosis, No Edema, Normal Pulses, Right mid tibia covered with Kerlix Assessment/Plan Assessment: Patient is a 47-year-old female with past medical history significant for AIDS mitochondrial disorder unknown, and depression. She is presenting with abdominal pain and right lower extremity cellulitis. #Abdominal Pain, unclear etiology Physical exam is benign. Abdominal CT on 01/09/18 negative for focal inflammatory process or obstruction. Patient has been noncompliant with medications, unsure when she took last HIV medication. Stool is negative for upper or lower GI bleed. Urine test is negative. EGD shows erosive gastritis and mild nonerosive duodenitis, biopsies taken. Plan: - will start on full liquid diet, advance as tolerated, per GI recs - Start Omeprazole 40mg BID - continue Zofran for Nausea - continue Sucralfate 1g PO QID - GI is following patient, input is highly appreciated #Urinary tract infection Urine positive for nitrites and leukocyte esterase and many bacteria. Afebrile, no urinary symptoms presently. Plan: - follow off antibiotics - urine culture negative for growth after 1 day #AIDS Patient diagnosed with AIDS in 2006. Recalls CD 4 count of 350 in March 2017. Has been noncompliant with medications, states has not been receiving medications due to traveling throughout various states before coming to [place]. Plan: -Continue Descony 200/25mg PoO Qdaily and raltegravir 1200mg PO Qdaily. COnfirmed medicine and dose information with nurse at office of Dr. Umang Bernardo. -follow up CD4 count and viral load #Right lower extremity cellulitis Infection has been ongoing since August while patient was in [place]. Has traveled to multiple [facility] and has been given multiple antibiotics for same condition, with no results. Most recently has taken Bactrim, has been given Zyvox prior and one other medical and cannot recall. Plan: - Wound care is following - following off antibiotics as recommended by ID - Deep Venous U/S negative for DVT in R. Lower extremity #Mitochondrial disorder Describes symptoms as hypoglycemia, ketones in urine and increase in lactic acid. Plan: We will monitor signs, complete workup if required DVT PPx- ALPS Diet- Full liquid Code Status- Full code Plan to discharge patient is tolerates diet. Problem List: 1. Nonspecific abdominal pain Pain Ratin Pain Location: Josefina-umbilical Pain Goal: Pain 4 or less Pain Plan: Tramadol Tomorrow's Labs & Rationales: None
[2018-01-12 11:47] VITALS: BP 92/60
--- NOTE | 2018-01-12 13:25 | Proc Note Endoscopy ---
Endoscopy Procedure Medical History: unchanged (see meditech consult) Mental Status: alert/oriented Heart/Lung Eval Prior to Sedation: within normal limits Candidate for Sedation? Yes Procedure Date: 01/12/18 Procedure Type: EGD w/biopsy Straight Edger: Lui Francis MD ASA Classification: III Indications: Abdominal pain. Instrument: diagnostic gastroscope Meds Received: MAC Patient's Tolerance: good Complications: none Extent Reached: second part of duodenum Procedure: After getting written informed consent the patient was placed in the left lateral decubitus position with pulse oximetry, cardiac monitoring, and supplemental oxygen given. A bite block was inserted and IV sedation was given until the desired effect was achieved. A high definition upper Olympus endoscope was then inserted into the mouth and advanced to the second portion of the duodenum with little difficulty. Retroflexed views and photodocumentation was obtained. Findings: Esophagus: The esophageal mucosa was grossly normal in appearance and there was a normal-appearing Z line at 38 centimeters some the incisors. There were no esophageal strictures, ulcers, erosions, or masses appreciated. Stomach: The antral mucosa was mildly erythematous with a few prominent linear erosions in the prepyloric region. There were no ulcers or masses appreciated. Distention and peristalsis of the stomach appeared normal. Retroflexed views were normal and did not reveal a significant hiatal hernia. Random biopsies were obtained from the antrum and body of the stomach with cold biopsy forceps and were sent to pathology for further evaluation. Duodenum: The duodenal bulb was mildly erythematous, but there were no ulcers or erosions appreciated. The duodenal sweep and folds were grossly normal in appearance. Random biopsies were obtained from the second portion of the duodenum and were sent to pathology for further evaluation. Impression: 1. Erosive gastritis and mild nonerosive duodenitis status post gastric biopsies. 2. Grossly normal small bowel folds status post random biopsies. Recommendations: 1. Continue pantoprazole, but would change to an oral formulation twice a day. 2. She should follow an antireflux regimen. 3. She should avoid or minimize use of NSAIDs. 4. Her diet should be advanced as tolerated. 5. She should follow up the pathology results with me as an outpatient. 6. She should continue sucralfate as needed for breakthrough symptoms.
[2018-01-12] MEDS ORDERED: DESCOVY 200-251 EACH PO (13:46)
[2018-01-12] MEDS ORDERED: ISENTRESS400 M1 PO (13:46)
[2018-01-12] MEDS ORDERED: OMEPRAZOLE40 M1 PO (13:46)
--- NOTE | 2018-01-12 13:50 | Patient Discharge Instructions ---
Discharge Instructions General Discharge Information You were seen/treated for: Erosive gastritis, HIV Watch for these problems: Fever, chest pain, shortness of breath Special Instructions: Please take all medications as directed. Please follow-up with primary care, gastroenterology, and the [facility] clinic at [place] for HIV care. Diet Continue normal diet: Yes Activity Full Activity/No Limits: Yes Acute Coronary Syndrome Inclusion Criteria At DC or during hospital stay patient has or had the following: ACS DIAGNOSIS No Discharge Core Measures Meds if any: Prescribed or Continued at Discharge Meds if any: NOT Prescribed or Continued at Discharge Congestive Heart Failure Inclusion Criteria At DC or during hospital stay patient has or had the following: CHF DIAGNOSIS No Discharge Core Measures Meds if any: Prescribed or Continued at Discharge Meds if any: NOT Prescribed or Continued at Discharge Cerebrovascular accident Inclusion Criteria At DC or during hospital stay patient has or had the following: CVA/TIA Diagnosis No Discharge Core Measures Meds if any: Prescribed or Continued at Discharge Meds if any: NOT Prescribed or Continued at Discharge Venous thromboembolism Inclusion Criteria VTE Diagnosis No VTE Type NONE VTE Confirmed by (Test) NONE Discharge Core Measures - Per Current guidelines, there needs to be overlap - treatment for the first 5 days of Warfarin therapy. - If discharged on Warfarin prior to 5 days of - overlap therapy, the patient will need to be - assessed for post discharge needs including - *Post discharge parental anticoagulation - *Warfarin and/or parental anticoagulation education - *Follow up date to check INR post discharge At least 5 days overlap therapy as Inpatient No Meds if any: Prescribed or Continued at Discharge Note: Overlap Therapy is Warfarin and Anticoagulant Meds if any: NOT Prescribed or Continued at Discharge
[2018-01-12] MEDS ORDERED: CARAFATE1 G1 PO (13:52)
[2018-01-12 14:19] VITALS: BP 110/50
--- NOTE | 2018-01-12 16:25 | PN- Infect Dx ---
Subjective Subjective: Afebrile. She feels well but does note some burning pain over the superficial ulcerations on her right lower extremity Objective Last 24 Hrs of Vital Signs/I&O Vital Signs Date Time Temp Pulse Resp B/P B/P Pulse O2 O2 Flow FiO2 Mean Ox Delivery Rate 01/12 1419 98.0 76 18 110/50 97 Room Air 01/12 1147 97.7 66 18 92/60 98 Room Air 01/12 0613 98.0 69 20 124/86 96 01/11 2147 98.1 68 18 118/66 97 Intake & Output 01/12 1600 01/12 0800 01/12 0000 Intake Total 480 130 800 Output Total Balance 480 130 800 Intake, IV 130 Intake, Oral 480 800 Patient 208 lb Weight Physical Exam Other Physical Findings: She appears comfortable in no acute distress Extremities no erythema or edema of the lower extremities; superficial ulcerations over the anterior tibial aspect of her leg unchanged Results Last 24 Hours of Lab Results: Laboratory Tests 01/12 01/12 0642 0642 Chemistry Sodium (137 - 145 mmol/L) 140 Potassium (3.5 - 5.1 mmol/L) 4.1 Chloride (98 - 107 mmol/L) 107 Carbon Dioxide (22 - 30 mmol/L) 26 Anion Gap (5 - 16) 7 BUN (7 - 17 mg/dL) 4 L Creatinine (0.5 - 1.0 mg/dL) 0.6 Estimated GFR (>60 ml/min) > 60 BUN/Creatinine Ratio (7 - 25 %) 6.7 L Hematology CBC w Diff NO MAN DIFF REQ WBC (4.8 - 10.8 /CUMM) 4.2 L RBC (4.20 - 5.40 /CUMM) 3.65 L Hgb (12.0 - 16.0 G/DL) 11.3 L Hct (37 - 47 %) 34.1 L MCV (81.0 - 99.0 FL) 93.5 MCH (27.0 - 31.0 PG) 31.0 MCHC (33.0 - 37.0 G/DL) 33.2 RDW (11.5 - 14.5 %) 14.9 H Plt Count (130 - 400 /CUMM) 167 MPV (7.4 - 10.4 FL) 8.8 Gran % (42.2 - 75.2 %) 58.7 Lymphocytes % (20.5 - 51.1 %) 27.2 Monocytes % (1.7 - 9.3 %) 6.9 Eosinophils % (0 - 5 %) 6.7 H Basophils % (0.0 - 2.0 %) 0.5 Absolute Granulocytes (1.4 - 6.5 /CUMM) 2.5 Absolute Lymphocytes (1.2 - 3.4 /CUMM) 1.2 Total Abs Lymphocytes Pending Absolute Monocytes (0.10 - 0.60 /CUMM) 0.3 Absolute Eosinophils (0.0 - 0.7 /CUMM) 0.3 Absolute Basophils (0.0 - 0.2 /CUMM) 0 Immunology Lymphocyte Subset Cmmnt Pending Absolute CD3 Count Pending % CD3 Mature T-Lymphs Pending % CD4 [place] Pending Absolute CD4 Count Pending T-Help/Suppress Ratio Pending % CD8 Suppressor Pending Absolute CD8 Count Pending Serology HIV 1&2 RNA (PCR) Pending Last 24 Hours of Daniel Results: Urine culture January 11 negative Assessment/Plan ID Impression: Stable, with temperatures and white blood cell count remaining normal, off antibiotics, with no evidence for lower extremity cellulitis. She remains on her antiretroviral regimen for AIDS and she will need to be referred to the [facility] clinic at [place] upon discharge. Suggestion: 1. Continue her antiretroviral therapy regimen per her HIV physician in [place] 2. Referral to the [facility] clinic at [place] upon discharge 3. Continue to follow off antibiotics
[2018-01-12 21:42] VITALS: BP 100/60
[2018-01-13 05:58] VITALS: BP 125/96
[2018-01-13 08:26] LABS: ABSOLUTE BASOPHIL COUNT 0 /CUMM (0.0-0.2); ABSOLUTE EOSINOPHIL COUNT 0.3 /CUMM (0.0-0.7); ABSOLUTE GRANULOCYTE CT 2.5 /CUMM (1.4-6.5); ABSOLUTE LYMPH COUNT 1.3 /CUMM (1.2-3.4); ABSOLUTE MONOCYTE COUNT 0.3 /CUMM (0.10-0.60); BASOPHIL % 0.6 % (0.0-2.0); EOSINOPHIL % 6.5 % (0-5); GRANULOCYTE % 55.9 % (42.2-75.2); HEMATOCRIT 36.2 % (37-47); MEAN CORPUSCULAR HGB 30.9 PG (27.0-31.0); MEAN CORPUSCULAR HGB CONC 32.8 G/DL (33.0-37.0); MEAN PLATELET VOLUME 8.8 FL (7.4-10.4); PLATELET COUNT 201 /CUMM (130-400); RED BLOOD CELL CT 3.85 /CUMM (4.20-5.40); WHITE BLOOD CELL COUNT 4.4 /CUMM (4.8-10.8)
--- NOTE | 2018-01-13 09:58 | PN- Housestaff ---
Axel Ennis 01/13/18 0954: Subjective Follow-up For: abdominal pain Complaints: pain scale (0-10) Subjective: Patient seen and examined at side of bed. No acute events overnight. Patient has is c/o abdominal pain, around her belly button, constant 6/10, nonradiating. Patient states she tolerated her breakfast and dinner last night. For dinner she was on full liquid diet, states dinner did not worsens her pain, but did have some nausea which resolved with zofran. Pain states after consuming her breakfast her stomach pain did increase, she had nausea and was given zofran. Denies vomiting, diarrhea, fever, SOB, night sweats or chills. Patients last BM was 2 days ago. Review of Systems Constitutional: Denies: chills, diaphoresis, fever. Cardiovascular: Denies: chest pain, palpitations. Respiratory: Denies: cough, short of breath. Gastrointestinal: Reports: abdominal pain, nausea. Denies: constipation, diarrhea, vomiting. Objective Last 24 Hrs of Vital Signs/I&O Vital Signs Date Time Temp Pulse Resp B/P B/P Pulse O2 O2 Flow FiO2 Mean Ox Delivery Rate 01/13 0558 98.5 77 18 125/96 98 Room Air 01/12 2142 98.2 78 17 100/60 98 Room Air 01/12 1419 98.0 76 18 110/50 97 Room Air Intake & Output 01/13 1600 01/13 0800 07 0000 Intake Total 100 300 Output Total Balance 100 300 Intake, Oral 100 300 Physical Exam General Appearance: Alert, Oriented X3, Cooperative Skin: right lower extermity covered in Kerlix, no erythema or discharge present HEENT: Atraumatic, PERRLA, EOMI Neck: Supple, No LAD Cardiovascular: Regular Rate, Normal S1, Normal S2 Lungs: Clear to Auscultation, Normal Air Movement Abdomen: Normal Bowel Sounds, Soft, minimal tenderness to palpation, worst at epigastrum. Neurological: Normal Speech Extremities: No Cyanosis, No Edema, Normal Pulses Assessment/Plan Assessment: Patient is a 47-year-old female with past medical history significant for AIDS mitochondrial disorder unknown, and depression. She is presenting with abdominal pain and right lower extremity cellulitis. #Abdominal Pain, unclear etiology Physical exam is benign. Abdominal CT on 01/09/18 negative for focal inflammatory process or obstruction. Patient has been noncompliant with medications, unsure when she took last HIV medication. Stool is negative for upper or lower GI bleed. Urine test is negative. EGD shows erosive gastritis and mild nonerosive duodenitis, biopsies taken. Plan: - Patient is tolerating regular diet - continue Omeprazole 40mg BID - continue Zofran for Nausea - continue Sucralfate 1g PO QID - GI is following patient, input is highly appreciated #Urinary tract infection Urine positive for nitrites and leukocyte esterase and many bacteria. Afebrile, no urinary symptoms presently. Plan: - follow off antibiotics - urine culture negative for growth after 1 day #AIDS Patient diagnosed with AIDS in 2006. Recalls CD 4 count of 350 in March 2017. Has been noncompliant with medications, states has not been receiving medications due to traveling throughout various states before coming to [place]. Plan: -Continue Descony 200/25mg PoO Qdaily and raltegravir 1200mg PO Qdaily. COnfirmed medicine and dose information with nurse at office of Dr. Umang Bernardo. -follow up CD4 count and viral load #Right lower extremity cellulitis Infection has been ongoing since August while patient was in [place]. Has traveled to multiple [facility] and has been given multiple antibiotics for same condition, with no results. Most recently has taken Bactrim, has been given Zyvox prior and one other medical and cannot recall. Plan: - Wound care is following - following off antibiotics as recommended by ID - Deep Venous U/S negative for DVT in R. Lower extremity #Mitochondrial disorder Describes symptoms as hypoglycemia, ketones in urine and increase in lactic acid. Plan: We will monitor signs, complete workup if required DVT PPx- ALPS Diet- Full liquid Code Status- Full code Plan to discharge patient tomorrow as patient has been tolerating diet. Problem List: 1. Erosive gastritis Pain Ratin Pain Location: francisco-umbilical Pain Goal: Pain 4 or less Pain Plan: Tylenol and Tramadol Tomorrow's Labs & Rationales: none Pierre Narvaez MD 01/13/18 1720: Attending MD Review Statement Attending Statement Attending MD Statement: examined this patient, discuss w/resident/PA/DEVELOPMENT ASSOCIATE, agreed w/resident/PA/DEVELOPMENT ASSOCIATE, reviewed EMR data (avail) Attending Assessment/Plan: 47F PMH HIV, mitochondrial disorder that can lead to lactic acidosis (per her), chronic non-healing ulcer on right leg presents with RLE cellulitis present for a week, started on Bactrim on 01/05 with worsening of pain and erythema of RLE. Afebrile, normal vitals, normal WBC. Started on Vancomycin and Cipro initially, leg erythema improved, now being monitored off of antibiotics. Complains of significant francisco-umbilical pain, no radiating, soft abdomen. No BM in 2 days. EGD done 01/12 shows erosive gastritis. Undomiciled, no skilled nursing available today. 1. RLE cellulitis 2. Erosive gastritis 3. Constipation 4. HIV Plan - Continue on general medicine - Give Senna tonight and Colace with meals - Continue PPI - Continue home medications - Monitor off antibiotics - DVT PPx - Anticipated discharge tomorrow - No labs tomorrow
[2018-01-13 14:40] VITALS: BP 125/81
[2018-01-13 21:40] VITALS: BP 122/73
[2018-01-14 06:35] VITALS: BP 129/71
--- NOTE | 2018-01-14 11:48 | PN- Housestaff ---
Axel Ennis 01/14/18 1144: Subjective Follow-up For: Erosive gastritis Complaints: pain scale (0-10) Subjective: Patient was seen and examined at bedside. No acute events overnight. Patient states she "feels the same", she has been tolerating her diet, denies vomiting, states abdominal pain increased post-meals. pain is 6/10. Denies fever, night sweats or chills. Review of Systems Constitutional: Denies: chills, diaphoresis, fever. Cardiovascular: Denies: chest pain, palpitations. Respiratory: Denies: cough, hemoptysis, short of breath. Gastrointestinal: Reports: abdominal pain, nausea. Denies: constipation, diarrhea. Objective Last 24 Hrs of Vital Signs/I&O Vital Signs Date Time Temp Pulse Resp B/P B/P Pulse O2 O2 Flow FiO2 Mean Ox Delivery Rate 01/14 0635 97.7 88 20 129/71 98 Room Air 01/13 2140 98.1 69 18 122/73 98 01/13 1600 Room Air 01/13 1440 97.9 79 20 125/81 99 Room Air Intake & Output 01/14 1600 01/14 0800 07/08 0000 Intake Total 120 850 Output Total Balance 120 850 Intake, Oral 120 850 Physical Exam General Appearance: Alert, Oriented X3, Cooperative Skin: No Rashes, R. lower extremity covered with tegaderm. No discharge, erythma or warmth appreciated Skin Temp/Moisture Exam: Warm/Dry HEENT: Atraumatic, EOMI Neck: Supple, No LAD Cardiovascular: Regular Rate, Normal S1, Normal S2 Lungs: Clear to Auscultation, Normal Air Movement Abdomen: Normal Bowel Sounds, Soft, Generalized tenderness to palpation, worst at epigastric region Assessment/Plan Assessment: Patient is a 47-year-old female with past medical history significant for AIDS mitochondrial disorder unknown, and depression. She is presenting with abdominal pain and right lower extremity cellulitis. #Erosive Gastritis and Duodenitis Physical exam is benign. Abdominal CT on 01/09/18 negative for focal inflammatory process or obstruction. Patient has been noncompliant with medications, unsure when she took last HIV medication. Stool is negative for upper or lower GI bleed. Urine test is negative. EGD shows erosive gastritis and mild nonerosive duodenitis, biopsies taken. Plan: - Patient is tolerating regular diet - continue Omeprazole 40mg BID - continue Zofran for Nausea - continue Sucralfate 1g PO QID - GI is following patient, input is highly appreciated #Urinary tract infection Urine positive for nitrites and leukocyte esterase and many bacteria. Afebrile, no urinary symptoms presently. Plan: - follow off antibiotics - urine culture negative for growth after 1 day #AIDS Patient diagnosed with AIDS in 2006. Recalls CD 4 count of 350 in March 2017. Has been noncompliant with medications, states has not been receiving medications due to traveling throughout various states before coming to [place]. Plan: -Continue Descony 200/25mg PoO Qdaily and raltegravir 1200mg PO Qdaily. COnfirmed medicine and dose information with nurse at office of Dr. Umang Bernardo. -follow up CD4 count and viral load #Right lower extremity cellulitis Infection has been ongoing since August while patient was in [place]. Has traveled to multiple [facility] and has been given multiple antibiotics for same condition, with no results. Most recently has taken Bactrim, has been given Zyvox prior and one other medical and cannot recall. Plan: - Wound care is following - following off antibiotics as recommended by ID - Deep Venous U/S negative for DVT in R. Lower extremity #Mitochondrial disorder Describes symptoms as hypoglycemia, ketones in urine and increase in lactic acid. Plan: We will monitor signs, complete workup if required DVT PPx- ALPS Diet- Full liquid Code Status- Full code Discharge patient today. Problem List: 1. Erosive gastritis Pain Ratin Pain Location: Epigastric Pain Goal: Pain 4 or less Pain Plan: Tylenol Tomorrow's Labs & Rationales: N/a Pierre Narvaez MD 01/14/18 1452: Attending MD Review Statement Attending Statement Attending MD Statement: examined this patient, discuss w/resident/PA/MERCHANDISE PRESENTATION MANAGER, agreed w/resident/PA/MERCHANDISE PRESENTATION MANAGER, reviewed EMR data (avail) Attending Assessment/Plan: 47F PMH HIV, mitochondrial disorder that can lead to lactic acidosis (per her), chronic non-healing ulcer on right leg presents with RLE cellulitis present for a week, started on Bactrim on 01/05 with worsening of pain and erythema of RLE. Afebrile, normal vitals, normal WBC. Started on Vancomycin and Cipro initially, leg erythema improved, now being monitored off of antibiotics. Complains of significant francisco-umbilical pain, no radiating, soft abdomen. No BM in 2 days. EGD done 01/12 shows erosive gastritis. 1. RLE cellulitis 2. Erosive gastritis 3. Constipation 4. HIV Plan - Stable for discharge home - Continue PPI - Continue home medications - Monitor off antibiotics - Outpatient PCP and GI follow up
[2018-01-14 13:57] VITALS: BP 139/97
[2018-01-14] MEDS ORDERED: LOPERAMIDE2 M1 PO (18:07)
[2018-01-14] MEDS ORDERED: CARAFATE1 G1 PO (18:07)
[2018-01-14] MEDS ORDERED: OMEPRAZOLE40 M1 PO (18:07)
== END 2018-01-14 18:08 | DRG 391 ==
LOC: ERH 20:05 → 2NB 01-10 00:02 → ERHI 01-10 00:02 → ENRESERV 01-10 01:12 → 2NB 01-10 01:44 → ENPENDDIS 01-13 16:19 → ENTRNSPT 01-14 17:51 → EDTRNSPTSTS 01-14 18:02 → 2NB 01-14 18:08 → CMPTRNSPT 01-14 18:13
PROVIDERS: Emergency Medicine; Internal Medicine
PROC: 0DB68ZX Excision of Stomach, Via Natural or Artificial Opening Endoscopic, Diagnostic (ICD-10-PCS; principal; 2018-01-12)
PROC: 0DB98ZX Excision of Duodenum, Via Natural or Artificial Opening Endoscopic, Diagnostic (ICD-10-PCS; principal; 2018-01-12)
DX: K29.60 Other gastritis without bleeding (principal); B20 Human immunodeficiency virus [HIV] disease; L97.919 Non-pressure chronic ulcer of unspecified part of right lower leg with unspecified severity; E88.40 Mitochondrial metabolism disorder, unspecified; K29.80 Duodenitis without bleeding; K59.00 Constipation, unspecified; F32.9 Major depressive disorder, single episode, unspecified; Z91.14 Patient's other noncompliance with medication regimen; F17.200 Nicotine dependence, unspecified, uncomplicated; D50.9 Iron deficiency anemia, unspecified; Z59.0 Homelessness; Z88.0 Allergy status to penicillin; Z88.1 Allergy status to other antibiotic agents; Z88.5 Allergy status to narcotic agent
CPT/HCPCS: 2NBP; 86359; 36592; 74177; 80307; 81001; 81025; 82436; 87086; 93005; 93010; J1650; J1885; J2405; J3101; J3370; J7040

== ENCOUNTER 2018-01-16 00:30 | Emergency (ER) | payer OTHER, MEDICARE ==
[~2018-01-16] VITALS: Ht 170.2 cm; Wt 81.6 kg
[~2018-01-16 00:30] MED LIST changes: +CARAFATE1 G1 PO; +DESCOVY 200-251 EACH PO; +ISENTRESS400 M1 PO; +LOPERAMIDE2 M1 PO; +OMEPRAZOLE40 M1 PO; +VENLAFAXINE HC150 M1 PO; +VENLAFAXINE HCL75 MG PO
--- NOTE | 2018-01-16 00:42 | ED PSYCHIATRIC COMPLAINT ---
History of Present Illness General Chief Complaint: ETOH/Drug Related Complaint Stated Complaint: BIBA, +ETOH Source: patient, old records, EMS Exam Limitations: no limitations Vital Signs & Intake/Output Vital Signs & Intake/Output Vital Signs Date Time Temp Pulse Resp B/P B/P Pulse O2 O2 Flow FiO2 Mean Ox Delivery Rate 01/16 0044 97.7 89 18 122/69 100 Room Air Allergies Coded Allergies: ceftriaxone (From ROCEPHIN) (Severe, "THROAT CLOSING" 01/05/18) penicillin G (Severe, "THROAT CLOSING" 01/05/18) morphine (Intermediate, RASH 01/09/18) tetracycline (Mild, RASHES 01/05/18) aspirin (Intermediate, RASH 01/09/18) codeine (Intermediate, RASH 01/09/18) hydrocodone (From VICODIN) (Intermediate, RASH 01/09/18) Uncoded Allergies: ALL ANTIBIOTIC ENDING WITH "MYCIN" (Mild, RASHES 01/05/18) Reconcile Medications Emtricitabine/Tenofov Alafenam (Descovy 200-25 MG Tablet) 200 MG-25 MG TABLET 1 TAB PO DAILY HIV Loperamide HCl (Loperamide) 2 MG TABLET 1 TAB PO Q6P DIARRHEA .. Omeprazole 40 MG CAPSULE.DR 1 CAP PO BID GERD . Raltegravir Potassium (Isentress) 400 MG TABLET 3 TAB PO DAILY HIV Sucralfate (Carafate) 1 GRAM TABLET 1 TAB PO 4 TIMES/DAY GI upset . Tramadol HCl (Ultram) 50 MG TABLET 1 TAB PO Q6P PRN severe pain Venlafaxine HCl (Venlafaxine HCl ER) 150 MG TAB.ER.24 1 TAB PO QPM DEPRESSION (Reported) Venlafaxine HCl 75 MG TABLET 1 TAB PO QPM DEPRESSION (Reported) Triage Nurses Notes Reviewed? yes HPI: Patient was found sleeping in a parking lot. Patient states she is a homeless. Patient admits to drinking alcohol tonight. Patient was just released from the hospital yesterday after admission for cellulitis. Patient denies coingestion. Patient denies suicidal or homicidal ideations. Past History Travel History Traveled to [place] past 21 day No Medical History Any Pertinent Medical History? 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 No Review of Systems Review of Systems Constitutional: Reports: no symptoms. EENTM: Reports: no symptoms. Respiratory: Reports: no symptoms. Cardiovascular: Reports: no symptoms. GI: Reports: no symptoms. Genitourinary: Reports: no symptoms. Musculoskeletal: Reports: no symptoms. Skin: Reports: no symptoms. Neurological/Psychological: Reports: no symptoms. Hematologic/Endocrine: Reports: no symptoms. Immunologic/Allergic: Reports: no symptoms. All Other Systems: Reviewed and Negative Physical Exam Physical Exam General Appearance: well developed/nourished, mild distress Head: atraumatic Eyes: Bilateral: PERRL, EOMI. Ears, Nose, Throat: normal pharynx, normal ENT inspection, hearing grossly normal Neck: normal inspection, supple Respiratory: normal breath sounds Cardiovascular: regular rate/rhythm Gastrointestinal: soft, non-tender Extremities: normal range of motion Neurological/Psychiatric: no motor/sensory deficits, awake, alert, calm, oriented x 3 Appearance/Memory/Insight: appropriate appearance, appropriate insight Behavoir/Eye Contact/Speech: cooperative, normal speech, good eye contact Thoughts/Hallucinations: normal thought pattern, no apparent hallucination Skin: intact, normal color, warm/dry SAD PERSONS Done? patient not suicidal Progress Differential Diagnosis: drug intoxication, drug overdose, drug withdrawal, electrolyte abnormality Plan of Care: HOLD [facility] Departure Departure Disposition: HOME OR SELF CARE Condition: Stable Clinical Impression Primary Impression: Alcohol intoxication Referrals: Patient Has No Primary Care Dr (PCP/Family) Additional Instructions: RETURN FOR ANY CONCERNS Departure Forms: Customer Survey General Discharge Information
[2018-01-16 05:39] VITALS: BP 97/67
== END 2018-01-16 06:12 ==
LOC: ERH 00:30
DX: B20 Human immunodeficiency virus [HIV] disease (principal)
CPT/HCPCS: 80307; 81003